=== PATIENT | male | born 2000 | race Caucasian/White ===

== ENCOUNTER 2019-03-06 02:09 | Emergency (ER) | payer BC ==
[~2019-03-06] VITALS: Ht 175.3 cm; Wt 66.2 kg
[2019-03-06 02:23] VITALS: BP 111/67
[2019-03-06] MEDS: MORPHINE SULFATE INJ 2 MG/ML DISP.SYRIN IV ONE (02:30)
--- NOTE | 2019-03-06 02:33 | NUR ---
PT BIBFRIEND C/C GENERALIZED ABD PAIN, LOWER BACK PAIN AND N/V SINCE NOON. PT AOX4. AFEBRILE. 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 PT ON MONITOR IN BED 2 WITH FRIEND AT BEDSIDE. WILL CONTINUE TO MONITOR.
--- NOTE | 2019-03-06 02:40 | NUR ---
BLOOD DRAWN AND GIVEN TO LAB
[2019-03-06] MEDS ORDERED: ONDANSETRON HCL/PF 4 MG/2 ML VIAL ONE ×2 (02:42→03:13)
[2019-03-06] MEDS ORDERED: MORPHINE SULFATE INJ 4 MG/ML DISP.SYRIN ONE (02:42)
[2019-03-06] MEDS: IV NS 0.9% 1,000 ML BAG IV ONE (02:46)
[2019-03-06] MEDS: ONDANSETRON HCL/PF 4 MG/2 ML VIAL IVP ONE ×2 (02:46→03:15)
[2019-03-06 02:49] LABS: BASOPHILS % (AUTO) 0.2 % (0.0-2.0); EOSINOPHILS % (AUTO) 0.2 % (0.0-6.0); HEMATOCRIT 49 % (39-51); LYMPHOCYTES # (AUTO) 0.7 /CMM (0.8-4.8); MEAN CORPUSCULAR HGB CONC 34 g/dl (31.0-36.0); MEAN CORPUSCULAR VOLUME 85 fL (80-96); MONOCYTES % (AUTO) 5.6 % (2.0-12.0); NEUTROPHILS # (AUTO) 16.9 /CMM (1.8-8.9); PLATELET COUNT (AUTO) 267 /CMM (150-450); RED BLOOD CELL COUNT(AUTO) 5.82 MIL/uL (4.5-6.0); WHITE BLOOD COUNT (AUTO) 18.7 K/uL (4.3-11.0)
[2019-03-06 02:59] LABS: BILIRUBIN,DIRECT 0.2 mg/dL (0.0-0.2); CALCIUM, SERUM 9.4 mg/dL (8.5-10.1); CREATININE 1.3 mg/dL (0.6-1.3); POTASSIUM 3.5 mmol/L (3.5-5.1); TOTAL PROTEIN, SERUM 8.4 g/dL (6.4-8.2)
--- NOTE | 2019-03-06 03:02 | NUR ---
Patient is resting comfortably in bed with eyes closed. Easily aroused. VSS. FRIEND AT BEDSIDE.
[2019-03-06] MEDS ORDERED: IOHEXOL-300 100 ML VIAL IV ONE (03:10)
[2019-03-06] MEDS ORDERED: IV NS 0.9% 250 ML IV ONE (03:10)
[2019-03-06] MEDS ORDERED: CT SWABBABLE VALVE TRANS SET 1 EA INFUS.SET MC ONE (03:10)
--- NOTE | 2019-03-06 04:14 | NUR ---
IV removed. Catheter intact and site benign. Pressure and 4x4 applied to site. No bleeding noted.Patient discharged to home in stable condition. Written and verbal after care instructions given. Patient verbalizes understanding of instruction.
== END 2019-03-06 04:19 | disposition home or self-care (01) ==
LOC: ER 02:13
DX: K52.9 Noninfective gastroenteritis and colitis, unspecified (principal)
CPT/HCPCS: 36415; 74177; 80048; 80076; 83690; 85025; 96361; 96374; 99284; J2405 ×2; J7030; J7050; Q9967; J2270